=== PATIENT | male | born 1950 | race Caucasian/White ===

== ENCOUNTER 2017-05-21 12:54 | Emergency (ER) | payer MEDICAID, MEDICARE ==
[2017-05-21 13:07] VITALS: O2SAT 99
[2017-05-21] MEDS ORDERED: Sodium Chloride 0.9% 1,000 ML IV ONE (13:47)
--- NOTE | 2017-05-21 14:23 | ED PDOC ---
HPI: Abdomen Time Seen by Provider: 05/21/17 13:13 Chief Complaint (Nursing): GI Problem History Per: Patient History/Exam Limitations: no limitations Onset/Duration Of Symptoms: Gradual (4 days ago) Severity: Mild Location Of Pain/Discomfort: LUQ, LLQ Quality Of Discomfort: Dull, Cramping Associated Symptoms: Nausea, Vomiting, Diarrhea. denies: Fever, Chills, Back Pain, Chest Pain, Constipation, Urinary Symptoms Exacerbating Factors: None Alleviating Factors: None Last Bowel Movement: Today Additional History Per: Patient Additional Complaint(s): pt c/o vomiting and diarrhea and loss of appetite x 4 days. no travel or sick contacts no bloody or black stools Past Medical History Reviewed: Historical Data, Nursing Documentation, Vital Signs Vital Signs: Last Vital Signs Temp 97.8 F 05/21/17 13:04 Pulse 87 05/21/17 13:04 Resp 18 05/21/17 13:04 BP 125/78 05/21/17 13:04 Pulse Ox 99 05/21/17 13:04 - Medical History PMH: No Chronic Diseases - Family History Family History: States: Unknown Family Hx - Living Arrangements Living Arrangements: With Family - Social History Current smoker - smoking cessation education provided: No - Home Medications Home Medications: Ambulatory Orders Medication Instructions Recorded Ciprofloxacin HCl [Cipro] 500 mg PO BID #20 tab 11/23/14 Tamsulosin HCl [Flomax] 0.4 mg PO DAILY #14 cap 11/23/14 - Allergies Allergies/Adverse Reactions: Allergies Allergy/AdvReac Type Severity Reaction Status Date / Time No Known Allergies Allergy Verified 05/21/17 13:02 Review of Systems ROS Statement: Except As Marked, All Systems Reviewed And Found Negative Constitutional: Negative for: Fever, Chills Cardiovascular: Negative for: Chest Pain, Palpitations Respiratory: Negative for: Cough, Shortness of Breath Gastrointestinal: Positive for: Nausea, Vomiting, Abdominal Pain, Diarrhea. Negative for: Constipation, Melena, Hematochezia, Hematemesis Genitourinary Male: Negative for: Dysuria Musculoskeletal: Negative for: Neck Pain Neurological: Negative for: Weakness, Numbness Physical Exam - Reviewed Nursing Documentation Reviewed: Yes Vital Signs Reviewed: Yes - Physical Exam Appears: Positive for: Well, Uncomfortable Head Exam: Positive for: ATRAUMATIC, NORMAL INSPECTION, NORMOCEPHALIC Eye Exam: Positive for: Normal appearance, EOMI Neck: Positive for: Normal, Painless ROM, Supple Cardiovascular/Chest: Positive for: Regular Rate, Rhythm. Negative for: Chest Non Tender, Edema, Gallop, Murmur, Bradycardia, Tachycardia Respiratory: Positive for: Normal Breath Sounds. Negative for: Decreased Breath Sounds, Accessory Muscle Use, Crackles, Rales, Rhonchi, Stridor, Wheezing Pulses-Radial (L): 2+ Pulses-Radial (R): 2+ Gastrointestinal/Abdominal: Positive for: Normal Exam, Bowel Sounds, Soft. Negative for: Tenderness Back: Positive for: Normal Inspection. Negative for: L CVA Tenderness, R CVA Tenderness Extremity: Positive for: Normal ROM. Negative for: Tenderness, Pedal Edema Neurologic/Psych: Positive for: Alert, dark room attendant II-XII, Oriented, Mood/Affect (calm) . Negative for: Motor/Sensory Deficits, Aphasia, Facial Droop - ECG O2 Sat by Pulse Oximetry: 99 Pulse Ox Interpretation: Normal
[2017-05-21 14:41] LABS: BASO % 0.4 % (0.0-2.0); EOS # 0.1 K/uL (0.0-0.7); EOS % 0.8 % (0.0-4.0); HEMOGLOBIN 15.1 g/dL (12.0-18.0); LYMPH # 2.4 K/uL (1.0-4.3); LYMPH % 36.7 % (20.0-40.0); MEAN CELL VOLUME 94.4 fl (80.0-94.0); MEAN CORPUSCULAR HEMOGLOBIN 31.8 pg (27.0-31.0); MEAN CORPUSCULAR HGB CONC 33.7 g/dL (33.0-37.0); MEAN PLATELET VOLUME 8.9 fl (7.2-11.7); MONO # 0.7 K/uL (0.0-0.8); NEUT # 3.3 K/uL (1.8-7.0); NEUT % 51.1 % (50.0-75.0); NRBC % 0.1 % (0.0-0.0); RBC 4.75 Mil/uL (4.40-5.90); RED CELL DISTRIBUTION WIDTH 12.7 % (11.5-14.5); WHITE BLOOD COUNT 6.5 K/uL (4.8-10.8)
[2017-05-21 14:43] LABS: SQUAMOUS EPITHIAL < 1 /hpf (0-5); URINE BACTERIA RARE (<OCC); URINE BILIRUBIN NEGATIVE (NEGATIVE); URINE BLOOD SMALL (NEGATIVE); URINE CLARITY SLIGHTY-CLOUDY (Clear); URINE COLOR YELLOW (YELLOW); URINE GLUCOSE (UA) >=500 mg/dL (Normal); URINE LEUKOCYTE ESTERASE NEG Leu/uL (Negative); URINE NITRATE NEGATIVE (NEGATIVE); URINE PROTEIN NEGATIVE (NEGATIVE); URINE UROBILINOGEN 0.2-1.0 mg/dL (0.2-1.0)
[2017-05-21 14:52] LABS: ALB/GLOB RATIO 1.1 (1.0-2.1); ALBUMIN 3.9 g/dL (3.5-5.0); ALT/SGPT 43 U/L (21-72); AMYLASE 104 U/L (30-110); AST/SGOT 36 U/L (17-59); BLOOD UREA NITROGEN 20 mg/dl (9-20); CALCIUM 8.8 mg/dL (8.4-10.2); GFR AFRICAN-AMERICAN > 60; GFR NON-AFRICAN AMERICAN > 60; LIPASE 196 U/L (23-300)
--- NOTE | 2017-05-21 17:46 | ED PDOC ---
- Laboratory Results Result Diagrams: 05/21/17 14:30 05/21/17 14:14 - ECG O2 Sat by Pulse Oximetry: 99 Medical Decision Making Medical Decision Making: Receiving sign out: Patient signed out to me by Dr. Palmer at [address] A/P w/ IV contrast, re-evaluation. Scribe Attestation: Documented by Diana Jara acting as a scribe for Danny Watts MD. Provider Attestation: All medical record entries made by the Scribe were at my direction and personally dictated by me. I have reviewed the chart and agree that the record accurately reflects my personal performance of the history, physical exam, medical decision making, and the department course for this patient. I have also personally directed, reviewed, and agree with the discharge instructions and disposition. Disposition - Clinical Impression Clinical Impression: Renal colic, Kidney stones - POA Present On Arrival: None - Disposition Referrals: Jude Peñaloza MD [Medical Doctor] - Disposition: Routine/Home Disposition Time: 19:15 Condition: FAIR Prescriptions: Ciprofloxacin HCl [Cipro] 500 mg PO BID #20 tab Tamsulosin [Flomax] 0.4 mg PO DAILY #5 cap traMADol [Ultram] 50 mg PO Q8 #10 tab Instructions: Kidney Stones (ED)
[2017-05-21] MEDS ORDERED: Iohexol 300 100 ML IJ ONE (18:09)
[2017-05-21] MEDS ORDERED: Sodium Chloride 0.9% 50 ML IV ONE (18:09)
--- NOTE | 2017-05-21 18:55 | CT ---
PROCEDURE: CT Abdomen and Pelvis with contrast HISTORY: LLQ abd pain COMPARISON: None. TECHNIQUE: Contrast dose: Radiation dose: Total exam DLP = mGy-cm. This CT exam was performed using one or more of the following dose reduction techniques: Automated exposure control, adjustment of the mA and/or kV according to patient size, and/or use of iterative reconstruction technique. FINDINGS: LOWER THORAX: Unremarkable. LIVER: Unremarkable. No gross lesion or ductal dilatation. GALLBLADDER AND BILE DUCTS: Minimal intrahepatic biliary dilatation as well as 1 centimeter left hepatic cyst. PANCREAS: Unremarkable. No gross lesion or ductal dilatation. SPLEEN: Unremarkable. ADRENALS: Unremarkable. No mass. KIDNEYS AND URETERS: 2 centimeter left upper pole renal cyst. 1 centimeter nonobstructive left lower pole renal calculus. No hydronephrosis. No solid mass. VASCULATURE: Unremarkable. No aortic aneurysm. BOWEL: Unremarkable. No obstruction. No gross mural thickening. APPENDIX: Normal appendix. PERITONEUM: Unremarkable. No free fluid. No free air. LYMPH NODES: Unremarkable. No enlarged lymph nodes. BLADDER: Multiple bladder calculi. REPRODUCTIVE: Prostate enlargement. BONES: No acute fracture. OTHER FINDINGS: None. IMPRESSION: Left renal and bladder calculi. No acute pathology.
[2017-05-21 19:05] VITALS: RESP 19
[2017-05-21 19:27] VITALS: BP 128/78; PULSE 78; TEMP 97.6
== END 2017-05-21 19:27 | disposition home or self-care (01) ==
LOC: H.ER 12:54
DX: N21.0 Calculus in bladder (principal); N23 Unspecified renal colic
CPT/HCPCS: 74177; 80053; 81003; 82150; 82948; 83690; 84484; 85025; 99283; J7040; Q9967